=== PATIENT | male | born 1995 | race Caucasian/White ===

== ENCOUNTER 2021-04-10 20:59 | Inpatient (IN) ==
[2021-04-11] MEDS ORDERED: Acetaminophen 325 MG TABLET PO PRN (03:49)
[2021-04-11] MEDS ORDERED: Ondansetron 4 MG/2 ML VIAL IVP PRN (03:49)
[2021-04-11] MEDS ORDERED: Melatonin 3 MG TABLET PO PRN (03:49)
[2021-04-11] MEDS ORDERED: Naloxone 0.4 MG/ML INJ IVP PRN (03:49)
[2021-04-11] MEDS ORDERED: Ipratropium 1 PUFF INHALER IH PRN (03:51)
[2021-04-11] MEDS ORDERED: *HR* Heparin 5,000 UNIT/ML VIAL IVP PRN ×2 (03:54)
[2021-04-11] MEDS ORDERED: Heparin 25,000UNIT/250ML 1/2NS 25,000 UNIT/250 ML IV.SOLN IVC SCH (04:00)
[2021-04-11] MEDS ORDERED: 0.9 % Sodium Chloride 1,000 ML IVC SCH (04:00)
[2021-04-11] MEDS: *HR* LORazepam 2 MG/ML VIAL IVP PRN ×2 (04:45→19:32)
[2021-04-11 06:03] LABS: Heparin anti-factor XA UFH 0.69 IU/mL (0.30-0.70); INR 1.2; Prothrombin Time 13.3 Seconds (9.4-12.1)
[2021-04-11 07:46] LABS: Hematocrit 33.8 % (37.5-50.1); Hemoglobin 11.6 g/dL (12.9-16.9); Lymphocytes # 0.6 K/mcL (0.6-4.6); Mean Corpuscular HGB Conc 34.3 g/dL (31.6-35.5); Mean Corpuscular Hemoglobin 30.9 pg (28.0-33.3); Mean Corpuscular Volume 89.9 fL (83.0-100.0); Mean Platelet Volume 11.3 fL (9.4-12.4); Monocytes # 0.2 K/mcL (0.0-1.3); Platelet Count 233 K/mcL (140-400); Red Blood Count 3.76 M/mcL (4.19-5.50); Red Cell Distribution Width 13.3 % (11.5-14.5); White Blood Count 10.6 K/mcL (4.3-11.1)
[2021-04-11] MEDS: Dexamethasone Sodium Phos/PF 10 MG/ML VIAL IVP SCH (08:57)
[2021-04-11] MEDS: *HR* Heparin 5,000 UNIT/ML VIAL SQ SCH ×3 (08:58→22:00)
[2021-04-11] MEDS ORDERED: Azithromycin 500 MG in 0.9 % Sodium Chloride 250 ML IVPB SCH (09:00)
[2021-04-11 09:01] LABS: Alanine Aminotransferase 26 Units/L (7-52); Albumin 3.1 g/dL (3.5-5.7); Albumin/Globulin Ratio 1.3 (1.1-2.2); Alkaline Phosphatase 63 Units/L (34-104); Aspartate Amino Transferase 39 Units/L (13-39); BUN/Creatinine Ratio 12 (6-26); Bilirubin,Total 0.3 mg/dL (0.3-1.0); Blood Urea Nitrogen 66 mg/dL (6-20); Calcium 7.3 mg/dL (8.6-10.3); Carbon Dioxide 12 mEq/L (23-29); Chloride 135 mEq/L (98-107); Ferritin > 1500 ng/mL (20-250); Globulin 2.3 g/dL (2.4-3.5); Glucose 124 mg/dL (70-105); Lactate Dehydrogenase 567 Units/L (140-271); Magnesium 1.6 mg/dL (1.6-2.6); Osmolality,Calculated 362 (280-300); Phosphorous 4.5 mg/dL (2.7-4.5); Potassium 5.6 mEq/L (3.5-5.1); Sodium 166 mEq/L (136-145); Total Protein 5.4 g/dL (6.4-8.9); eGFR For African Americans 16 (> 60); eGFR For Non-African Americans 13 (> 60)
[2021-04-11 11:28] LABS: C-Reactive Protein 234 mg/L (Less than 10)
[2021-04-11] MEDS: Benzonatate 100 MG CAPSULE PO PRN ×2 (13:26→22:00)
[2021-04-11 14:47] LABS: Calcium 7.5 mg/dL (8.6-10.3); Potassium 4.7 mEq/L (3.5-5.1)
[2021-04-11 16:18] LABS: Neutrophils # 9.8 K/mcL (1.6-8.9)
[2021-04-11 16:19] LABS: Platelet Estimate Normal (Normal)
[2021-04-11] MEDS: cefTRIAXone 1,000 MG in 0.9 % Sodium Chloride Mini Bag 100 ML IVPB SCH (18:19)
[2021-04-11] MEDS: 0.9 % Sodium Chloride 1,000 ML IVC SCH (18:20)
[2021-04-11] MEDS ORDERED: GuaiFENesin/Codeine Oral Soln 5 ML UDC PO PRN (18:42)
[2021-04-11] MEDS ORDERED: Menthol 1 EACH LOZENGE PO PRN (18:43)
[2021-04-12] MEDS: 0.9 % Sodium Chloride 1,000 ML IVC SCH ×4 (01:52→18:25)
[2021-04-12] MEDS: *HR* Heparin 5,000 UNIT/ML VIAL SQ SCH ×3 (05:43→21:29)
[2021-04-12 06:40] LABS: Hematocrit 39.8 % (37.5-50.1); Hemoglobin 13.1 g/dL (12.9-16.9); Mean Corpuscular HGB Conc 32.9 g/dL (31.6-35.5); Mean Corpuscular Hemoglobin 29.8 pg (28.0-33.3); Mean Corpuscular Volume 90.5 fL (83.0-100.0); Platelet Count 245 K/mcL (140-400); Red Cell Distribution Width 14.1 % (11.5-14.5)
[2021-04-12 07:41] LABS: Albumin/Globulin Ratio 1.1 (1.1-2.2); Bilirubin,Total 0.3 mg/dL (0.3-1.0); Calcium 7.5 mg/dL (8.6-10.3); Globulin 2.7 g/dL (2.4-3.5); Magnesium 1.5 mg/dL (1.6-2.6); Potassium 5.3 mEq/L (3.5-5.1); Total Protein 5.7 g/dL (6.4-8.9)
[2021-04-12] MEDS: Dexamethasone Sodium Phos/PF 10 MG/ML VIAL IVP SCH (08:00)
[2021-04-12] MEDS ORDERED: *HR* LORazepam 2 MG/ML VIAL IVP ONE (08:10)
[2021-04-12] MEDS ORDERED: Dexmedetomidine HCl 400 MCG/100 ML MLS IVC SCH (08:30)
[2021-04-12] MEDS ORDERED: *HR* Propofol 200 MG/20 ML VIAL IVP ONE (09:00)
[2021-04-12] MEDS ORDERED: *HR* Etomidate 20 MG/10 ML AMPUL IVP ONE (09:00)
[2021-04-12] MEDS ORDERED: Artificial Tears SOLN 15 ML BOTTLE BOTH EYES PRN (09:39)
[2021-04-12] MEDS: Midazolam HCl 50 MG/100 ML IV.SOLN IVC SCH (10:00)
[2021-04-12] MEDS: FentaNYL (PF) 1,000 MCG/100 ML IV.SOLN IVC SCH ×2 (10:00→22:00)
[2021-04-12] MEDS ORDERED: Magnesium Sulfate 1 GM/102 ML PIGGYBACK IVPB ONE (10:14)
[2021-04-12] MEDS: Dexmedetomidine HCl 400 MCG/100 ML MLS IVC SCH (10:37)
[2021-04-12] MEDS: Artificial Tears SOLN 15 ML BOTTLE BOTH EYES SCH ×4 (10:47→23:09)
[2021-04-12 11:41] LABS: ABG Base Excess -11 mEq/L (-2 to 3); ABG HCO3 15 mEq/L (21-27); ABG Oxygen Saturation 97 % (95-98); ABG PCO2 33 mmHg (35-45); ABG PH 7.28 pH Units (7.32-7.45); ABG PO2 100 mmHg (85-104); ABG TCO2 16 mEq/L (20-26); Blood Gas Modality ASSIST CONTROL; Blood Gas VT 350 cc
[2021-04-12] MEDS: Pantoprazole 40 MG VIAL IVP SCH (11:49)
[2021-04-12] MEDS: Norepinephrine 4 MG/254 ML IV.SOLN IVC SCH ×3 (17:23→23:10)
[2021-04-12] MEDS: cefTRIAXone 1,000 MG in 0.9 % Sodium Chloride Mini Bag 100 ML IVPB SCH (17:58)
[2021-04-12] MEDS: Chlorhexidine Rinse 15 ML MOUTHWASH MM SCH (20:20)
[2021-04-12 21:02] LABS: Sodium, Urine 40.3 mEq/L
[2021-04-13] MEDS: Midazolam HCl 50 MG/100 ML IV.SOLN IVC SCH ×3 (00:05→19:24)
[2021-04-13] MEDS: 0.9 % Sodium Chloride 1,000 ML IVC SCH ×2 (01:48→09:49)
[2021-04-13] MEDS: Artificial Tears SOLN 15 ML BOTTLE BOTH EYES SCH ×5 (03:10→21:09)
[2021-04-13 04:18] LABS: ABG Base Excess -12 mEq/L (-2 to 3); ABG HCO3 15 mEq/L (21-27); ABG Oxygen Saturation 100 % (95-98); ABG PCO2 38 mmHg (35-45); ABG PO2 313 mmHg (85-104); ABG TCO2 16 mEq/L (20-26); Blood Gas VT 350 cc
[2021-04-13 04:47] LABS: Hematocrit 35.5 % (37.5-50.1); Hemoglobin 11.7 g/dL (12.9-16.9); Mean Corpuscular Hemoglobin 30.3 pg (28.0-33.3); Mean Platelet Volume 10.4 fL (9.4-12.4); Platelet Count 217 K/mcL (140-400); Red Blood Count 3.86 M/mcL (4.19-5.50); Red Cell Distribution Width 14.6 % (11.5-14.5); White Blood Count 15.2 K/mcL (4.3-11.1)
[2021-04-13 04:50] LABS: Albumin 2.6 g/dL (3.5-5.7); Bilirubin,Total 0.2 mg/dL (0.3-1.0); Calcium 7.4 mg/dL (8.6-10.3); Globulin 2.5 g/dL (2.4-3.5); Magnesium 1.7 mg/dL (1.6-2.6); Phosphorous 3.8 mg/dL (2.7-4.5); Potassium 4.5 mEq/L (3.5-5.1); Total Protein 5.1 g/dL (6.4-8.9)
[2021-04-13 05:22] LABS: Lymphocytes # 0.3 K/mcL (0.6-4.6); Neutrophils # 14.9 K/mcL (1.6-8.9)
[2021-04-13 05:23] LABS: Platelet Estimate Normal (Normal)
[2021-04-13] MEDS: *HR* Heparin 5,000 UNIT/ML VIAL SQ SCH ×3 (05:54→21:10)
[2021-04-13] MEDS: FentaNYL (PF) 1,000 MCG/100 ML IV.SOLN IVC SCH ×2 (07:31→15:31)
[2021-04-13] MEDS: Norepinephrine 4 MG/254 ML IV.SOLN IVC SCH (07:32)
[2021-04-13] MEDS ORDERED: Pantoprazole 40 MG VIAL IVP SCH (09:00)
[2021-04-13] MEDS: Chlorhexidine Rinse 15 ML MOUTHWASH MM SCH ×2 (09:09→21:09)
[2021-04-13] MEDS: Dexamethasone Sodium Phos/PF 10 MG/ML VIAL IVP SCH (09:09)
[2021-04-13] MEDS: Bisacodyl 10 MG RECTAL SUPPOSITORY RC SCH (09:10)
[2021-04-13] MEDS: Pantoprazole 40 MG VIAL IVP SCH (09:10)
[2021-04-13] MEDS ORDERED: D5% in Water 1,000 ML IVC SCH (13:30)
[2021-04-13] MEDS: Dexmedetomidine HCl 400 MCG/100 ML MLS IVC SCH (13:31)
[2021-04-13 17:01] LABS: ABG Base Excess -14 mEq/L (-2 to 3); ABG HCO3 15 mEq/L (21-27); ABG Oxygen Saturation 98 % (95-98); ABG PCO2 45 mmHg (35-45); ABG PH 7.14 pH Units (7.32-7.45); ABG PO2 138 mmHg (85-104); ABG TCO2 17 mEq/L (20-26); Blood Gas VT 350 cc
[2021-04-13] MEDS ORDERED: Sodium Bicarbonate 150 MEQ in D5% in Water 1,000 ML IVC SCH (17:30)
[2021-04-13 17:44] LABS: Calcium 7.3 mg/dL (8.6-10.3); Potassium 4.2 mEq/L (3.5-5.1)
[2021-04-13 22:29] LABS: ABG Base Excess -9 mEq/L (-2 to 3); ABG HCO3 17 mEq/L (21-27); ABG Oxygen Saturation 100 % (95-98); ABG PCO2 38 mmHg (35-45); ABG PH 7.26 pH Units (7.32-7.45); ABG PO2 184 mmHg (85-104); ABG TCO2 18 mEq/L (20-26); Blood Gas Modality ASSIST CONTROL; Blood Gas VT 350 cc
[2021-04-14] MEDS: Artificial Tears SOLN 15 ML BOTTLE BOTH EYES SCH ×6 (00:53→21:17)
[2021-04-14] MEDS: FentaNYL (PF) 1,000 MCG/100 ML IV.SOLN IVC SCH ×2 (01:06→10:07)
[2021-04-14 04:19] LABS: Albumin 2.3 g/dL (3.5-5.7); Bilirubin,Total 0.2 mg/dL (0.3-1.0); Calcium 7.5 mg/dL (8.6-10.3); Globulin 2.3 g/dL (2.4-3.5); Potassium 3.9 mEq/L (3.5-5.1); Total Protein 4.6 g/dL (6.4-8.9)
[2021-04-14 04:33] LABS: Hemoglobin 10.5 g/dL (12.9-16.9); Mean Corpuscular HGB Conc 32.8 g/dL (31.6-35.5); Mean Corpuscular Hemoglobin 29.5 pg (28.0-33.3); Mean Corpuscular Volume 89.9 fL (83.0-100.0); Mean Platelet Volume 10.7 fL (9.4-12.4); Platelet Count 174 K/mcL (140-400); Red Blood Count 3.56 M/mcL (4.19-5.50); Red Cell Distribution Width 14.4 % (11.5-14.5); White Blood Count 13.4 K/mcL (4.3-11.1)
[2021-04-14 05:59] LABS: ABG Base Excess -5 mEq/L (-2 to 3); ABG HCO3 20 mEq/L (21-27); ABG Oxygen Saturation 99 % (95-98); ABG PCO2 37 mmHg (35-45); ABG PH 7.34 pH Units (7.32-7.45); ABG PO2 169 mmHg (85-104); ABG TCO2 21 mEq/L (20-26); Blood Gas VT 350 cc
[2021-04-14] MEDS: *HR* Heparin 5,000 UNIT/ML VIAL SQ SCH ×3 (06:02→21:17)
[2021-04-14 07:44] LABS: Lymphocytes # 0.8 K/mcL (0.6-4.6); Monocytes # 0.8 K/mcL (0.0-1.3); Neutrophils # 11.8 K/mcL (1.6-8.9)
[2021-04-14 07:45] LABS: Platelet Estimate Normal (Normal)
[2021-04-14] MEDS ORDERED: D5% in Water 1,000 ML IVC SCH (08:00)
[2021-04-14] MEDS: Cholecalciferol (D-3) 1,000 UNIT (25MCG) TABLET PO SCH (08:51)
[2021-04-14] MEDS: Dexamethasone Sodium Phos/PF 10 MG/ML VIAL IVP SCH (08:51)
[2021-04-14] MEDS: Bisacodyl 10 MG RECTAL SUPPOSITORY RC SCH (08:51)
[2021-04-14] MEDS: Pantoprazole 40 MG VIAL IVP SCH (08:52)
[2021-04-14] MEDS: Sodium Bicarbonate 150 MEQ in D5% in Water 1,000 ML IVC SCH (10:31)
[2021-04-14] MEDS: Chlorhexidine Rinse 15 ML MOUTHWASH MM SCH ×2 (12:22→21:17)
[2021-04-14 14:46] LABS: Calcium 7.5 mg/dL (8.6-10.3); Potassium 3.7 mEq/L (3.5-5.1)
[2021-04-14] MEDS: Midazolam HCl 50 MG/100 ML IV.SOLN IVC SCH (19:40)
[2021-04-15] MEDS: Artificial Tears SOLN 15 ML BOTTLE BOTH EYES SCH ×4 (00:15→20:55)
[2021-04-15] MEDS: FentaNYL (PF) 1,000 MCG/100 ML IV.SOLN IVC SCH ×2 (03:34→20:56)
[2021-04-15] MEDS: Sodium Bicarbonate 150 MEQ in D5% in Water 1,000 ML IVC SCH (04:30)
[2021-04-15 05:45] LABS: ABG Base Excess 2 mEq/L (-2 to 3); ABG HCO3 27 mEq/L (21-27); ABG Oxygen Saturation 88 % (95-98); ABG PCO2 42 mmHg (35-45); ABG PH 7.41 pH Units (7.32-7.45); ABG PO2 54 mmHg (85-104); ABG TCO2 28 mEq/L (20-26); Blood Gas VT 350 cc
[2021-04-15] MEDS: *HR* Heparin 5,000 UNIT/ML VIAL SQ SCH ×3 (06:04→20:55)
[2021-04-15 06:57] LABS: Hematocrit 31.2 % (37.5-50.1); Hemoglobin 10.4 g/dL (12.9-16.9); Mean Corpuscular HGB Conc 33.3 g/dL (31.6-35.5); Mean Corpuscular Hemoglobin 29.6 pg (28.0-33.3); Mean Corpuscular Volume 88.9 fL (83.0-100.0); Mean Platelet Volume 11.5 fL (9.4-12.4); Platelet Count 131 K/mcL (140-400); Red Blood Count 3.51 M/mcL (4.19-5.50); Red Cell Distribution Width 13.9 % (11.5-14.5); White Blood Count 13.6 K/mcL (4.3-11.1)
[2021-04-15 07:18] LABS: Calcium 7.5 mg/dL (8.6-10.3); Potassium 3.3 mEq/L (3.5-5.1)
[2021-04-15 08:22] LABS: Lymphocytes # 1.1 K/mcL (0.6-4.6); Monocytes # 0.5 K/mcL (0.0-1.3); Platelet Estimate Normal (Normal)
[2021-04-15] MEDS: Bisacodyl 10 MG RECTAL SUPPOSITORY RC SCH (08:47)
[2021-04-15] MEDS: Pantoprazole 40 MG VIAL IVP SCH (08:47)
[2021-04-15] MEDS: Dexamethasone Sodium Phos/PF 10 MG/ML VIAL IVP SCH (08:47)
[2021-04-15] MEDS: Chlorhexidine Rinse 15 ML MOUTHWASH MM SCH ×2 (08:48→20:55)
[2021-04-15] MEDS: Cholecalciferol (D-3) 1,000 UNIT (25MCG) TABLET PO SCH (08:48)
[2021-04-15] MEDS ORDERED: Potassium Chloride Elixir 20 MEQ/15 ML UDC GTUBE ONE (12:15)
[2021-04-15] MEDS: D5% in Water 1,000 ML IVC SCH (16:51)
[2021-04-15] MEDS: Midazolam HCl 50 MG/100 ML IV.SOLN IVC SCH (20:58)
[2021-04-16] MEDS: Artificial Tears SOLN 15 ML BOTTLE BOTH EYES SCH ×9 (00:30→23:52)
[2021-04-16] MEDS ORDERED: *HR* Metoprolol 5 MG/5 ML VIAL IVP ONE (04:30)
[2021-04-16] MEDS: *HR* Heparin 5,000 UNIT/ML VIAL SQ SCH ×3 (04:56→20:51)
[2021-04-16 05:24] LABS: ABG Base Excess -1 mEq/L (-2 to 3); ABG HCO3 29 mEq/L (21-27); ABG Oxygen Saturation 91 % (95-98); ABG PCO2 78 mmHg (35-45); ABG PH 7.18 pH Units (7.32-7.45); ABG PO2 80 mmHg (85-104); ABG TCO2 32 mEq/L (20-26); Blood Gas Modality ASSIST CONTROL; Blood Gas VT 350 cc
[2021-04-16 06:07] LABS: Hemoglobin 10.7 g/dL (12.9-16.9); Mean Platelet Volume 12.8 fL (9.4-12.4)
[2021-04-16 06:09] LABS: Basophils % 0.2 %; Hematocrit 32.6 % (37.5-50.1); Immature Granulocytes % 2.9 % (0-4); Immature Platelets 12.2 % (1.1-6.1); Lymphocytes # 0.6 K/mcL (0.6-4.6); Lymphocytes % 2.9 %; Mean Corpuscular HGB Conc 32.8 g/dL (31.6-35.5); Mean Corpuscular Hemoglobin 30.3 pg (28.0-33.3); Mean Corpuscular Volume 92.4 fL (83.0-100.0); Monocytes # 1.1 K/mcL (0.0-1.3); Monocytes % 5.3 %; Neutrophils # 18.6 K/mcL (1.6-8.9); Platelet Count 103 K/mcL (140-400); Red Blood Count 3.53 M/mcL (4.19-5.50); Red Cell Distribution Width 14.4 % (11.5-14.5); Segmented Neutrophils % 88.7 %
[2021-04-16 06:20] LABS: BUN/Creatinine Ratio 27 (6-26); Blood Urea Nitrogen 44 mg/dL (6-20); Calcium 7.3 mg/dL (8.6-10.3); Carbon Dioxide 31 mEq/L (23-29); Chloride 111 mEq/L (98-107); Glucose 252 mg/dL (70-105); Magnesium 1.6 mg/dL (1.6-2.6); Osmolality,Calculated 324 (280-300); Phosphorous 3.8 mg/dL (2.7-4.5); Potassium 4.1 mEq/L (3.5-5.1); Sodium 147 mEq/L (136-145); eGFR For African Americans > 60 (> 60); eGFR For Non-African Americans 52 (> 60)
[2021-04-16] MEDS: D5% in Water 1,000 ML IVC SCH ×2 (06:46→20:50)
[2021-04-16] MEDS: Norepinephrine 4 MG/254 ML IV.SOLN IVC SCH ×8 (07:38→20:52)
[2021-04-16] MEDS: Dexmedetomidine HCl 400 MCG/100 ML MLS IVC SCH ×3 (07:39→08:43)
[2021-04-16] MEDS: Sodium Bicarbonate 150 MEQ in D5% in Water 1,000 ML IVC SCH ×2 (07:39→08:43)
[2021-04-16] MEDS: Chlorhexidine Rinse 15 ML MOUTHWASH MM SCH ×2 (08:04→20:51)
[2021-04-16] MEDS: Bisacodyl 10 MG RECTAL SUPPOSITORY RC SCH (08:04)
[2021-04-16] MEDS: Dexamethasone Sodium Phos/PF 10 MG/ML VIAL IVP SCH (08:04)
[2021-04-16] MEDS: Pantoprazole 40 MG VIAL IVP SCH (08:04)
[2021-04-16] MEDS: Cholecalciferol (D-3) 1,000 UNIT (25MCG) TABLET PO SCH (08:05)
[2021-04-16] MEDS: Midazolam HCl 50 MG/100 ML IV.SOLN IVC SCH ×2 (09:43→15:58)
[2021-04-16 10:25] LABS: ABG Base Excess 1 mEq/L (-2 to 3); ABG HCO3 28 mEq/L (21-27); ABG Oxygen Saturation 95 % (95-98); ABG PCO2 53 mmHg (35-45); ABG PH 7.34 pH Units (7.32-7.45); ABG PO2 82 mmHg (85-104); ABG TCO2 30 mEq/L (20-26); Blood Gas Modality AF; Blood Gas VT 380 cc
[2021-04-16] MEDS: FentaNYL (PF) 1,000 MCG/100 ML IV.SOLN IVC SCH ×3 (10:44→20:49)
[2021-04-16 10:55] LABS: Bacteria,Urine Few per hpf (None-Few); Bilirubin,Urine Negative (Negative); Blood,Urine Moderate (Negative); Budding Yeast,Urine Many per hpf (None Seen); Clarity,Urine Ex.Turbid (Clear); Color,Urine Yellow (Yellow); Glucose,Urine (UA) 500 mg/dL (Normal); Ketones,Urine Negative (Negative); Leukocyte Esterase,Urine Large (Negative); Mucus,Urine Few per lpf (None-Few); Nitrite,Urine Negative (Negative); PH,Urine 6.5 pH Units (5.0-8.0); Protein,Urine 30 mg/dL (Neg-Trace); RBC,Urine TNTC per hpf (0-3); Renal Epithelial Cells,Urine Few per hpf (None-Few); Specific Gravity,Urine 1.013 (1.010-1.025); Squamous Epithelial Cell,Urine Few per hpf (None-Few); Transitional Epi Cells,Urine Few per hpf (None-Few); Urobilinogen,Urine Normal (Normal); WBC,Urine TNTC per hpf (0-3)
[2021-04-16] MEDS: Insulin LISPRO 300 UNITS/3 ML VIAL SUBQ SCH ×4 (12:28→23:52)
[2021-04-17] MEDS: Midazolam HCl 50 MG/100 ML IV.SOLN IVC SCH ×3 (00:13→11:43)
[2021-04-17] MEDS: FentaNYL (PF) 1,000 MCG/100 ML IV.SOLN IVC SCH ×4 (01:08→15:30)
[2021-04-17] MEDS: Insulin LISPRO 300 UNITS/3 ML VIAL SUBQ SCH ×3 (03:44→11:53)
[2021-04-17] MEDS: Artificial Tears SOLN 15 ML BOTTLE BOTH EYES SCH ×3 (03:44→11:53)
[2021-04-17 04:09] LABS: VBG Ionized Calcium 1.16 mmol/L (1.15-1.35)
[2021-04-17 04:24] LABS: ABG Base Excess 3 mEq/L (-2 to 3); ABG HCO3 28 mEq/L (21-27); ABG Oxygen Saturation 98 % (95-98); ABG PCO2 43 mmHg (35-45); ABG PH 7.42 pH Units (7.32-7.45); ABG PO2 101 mmHg (85-104); ABG TCO2 29 mEq/L (20-26); Blood Gas VT 380 cc
[2021-04-17 04:26] LABS: BUN/Creatinine Ratio 35 (6-26); Blood Urea Nitrogen 36 mg/dL (6-20); Calcium 7.3 mg/dL (8.6-10.3); Carbon Dioxide 29 mEq/L (23-29); Chloride 107 mEq/L (98-107); Glucose 220 mg/dL (70-105); Magnesium 1.5 mg/dL (1.6-2.6); Osmolality,Calculated 305 (280-300); Phosphorous 2.3 mg/dL (2.7-4.5); Potassium 4.3 mEq/L (3.5-5.1); Sodium 140 mEq/L (136-145); eGFR For African Americans > 60 (> 60); eGFR For Non-African Americans > 60 (> 60)
[2021-04-17 05:00] LABS: Basophils % 0.1 %; Hematocrit 29.2 % (37.5-50.1); Mean Corpuscular Volume 91.5 fL (83.0-100.0); Red Blood Count 3.19 M/mcL (4.19-5.50)
[2021-04-17 05:02] LABS: Hemoglobin 9.6 g/dL (12.9-16.9); Immature Granulocytes % 2.3 % (0-4); Immature Platelets 18.9 % (1.1-6.1); Lymphocytes # 0.7 K/mcL (0.6-4.6); Lymphocytes % 5.2 %; Mean Corpuscular HGB Conc 32.9 g/dL (31.6-35.5); Mean Corpuscular Hemoglobin 30.1 pg (28.0-33.3); Mean Platelet Volume 14.1 fL (9.4-12.4); Monocytes # 0.5 K/mcL (0.0-1.3); Monocytes % 3.9 %; Neutrophils # 11.9 K/mcL (1.6-8.9); Red Cell Distribution Width 13.7 % (11.5-14.5); Segmented Neutrophils % 88.5 %; White Blood Count 13.4 K/mcL (4.3-11.1)
[2021-04-17] MEDS: Norepinephrine 4 MG/254 ML IV.SOLN IVC SCH ×2 (05:58→11:54)
[2021-04-17 06:14] LABS: Platelet Count 53 K/mcL (140-400)
[2021-04-17 06:15] LABS: Platelet Estimate Decreased (Normal)
[2021-04-17] MEDS: *HR* Heparin 5,000 UNIT/ML VIAL SQ SCH ×2 (06:22→15:30)
[2021-04-17] MEDS: D5% in Water 1,000 ML IVC SCH ×2 (07:43→11:42)
[2021-04-17] MEDS: Chlorhexidine Rinse 15 ML MOUTHWASH MM SCH (08:55)
[2021-04-17] MEDS: Pantoprazole 40 MG VIAL IVP SCH (08:55)
[2021-04-17] MEDS: Cholecalciferol (D-3) 1,000 UNIT (25MCG) TABLET PO SCH (08:55)
[2021-04-17] MEDS: Bisacodyl 10 MG RECTAL SUPPOSITORY RC SCH (08:55)
[2021-04-17] MEDS: Dexamethasone Sodium Phos/PF 10 MG/ML VIAL IVP SCH (08:55)
[2021-04-17] MEDS ORDERED: Fluconazole 40 MG/ML UDC PO SCH (09:07)
[2021-04-17] MEDS ORDERED: Furosemide 20 MG/2 ML VIAL IVP ONE (09:16)
[2021-04-17] MEDS: Sodium Bicarbonate 150 MEQ in D5% in Water 1,000 ML IVC SCH (09:26)
[2021-04-17] MEDS: Dexmedetomidine HCl 400 MCG/100 ML MLS IVC SCH (09:26)
[2021-04-17] MEDS ORDERED: cefTRIAXone 2,000 MG in Water for inj. (sterile) 20 ML IVP SCH (10:00)
[2021-04-17 12:55] VITALS: TEMP 98.6
[2021-04-17 14:24] VITALS: PULSE 51
[2021-04-17 15:36] VITALS: BP 115/76; O2SAT 94
[2021-04-18] MEDS ORDERED: Dexamethasone Sodium Phos/PF 10 MG/ML VIAL IVP SCH (09:00)
== END 2021-04-17 16:15 | disposition short-term general hospital (02) | DRG 130 ==
LOC: 2NENU → SUATTDRO 04-11 03:49 → 2NNU 04-12 09:37 → ICNU 04-16 20:35
PROVIDERS: ADMIT Student in an Organized Health Care Education/Training Program; ATTEND Family Medicine